=== PATIENT | female | born 1945 | race Caucasian/White ===

== ENCOUNTER 2017-12-04 16:24 | Emergency (ER) | payer OTHER, MEDICARE ==
[2017-12-04 16:39] VITALS: BP 155/80; PULSE 84; RESP 18; TEMP 97.7; O2SAT 95
--- NOTE | 2017-12-04 17:44 | EDPHY ---
H & P Smoking Status: Never smoked Time Seen by Provider: 12/04/17 17:37 HPI/ROS: CHIEF COMPLAINT: Right medial ankle pain x2 weeks, requesting morgan boot HISTORY OF PRESENT ILLNESS: 72-year-old female, ambulates with a walker, arrives via private vehicle complaining of acute right medial ankle pain after she rolled her foot 2 weeks ago. She is able to bear weight albeit with pain. Notes soft tissue swelling/edema which decreases with elevation and ice packs. No paresthesia. No fall from height. No proximal tibia or fibula pain, no fibular head pain. PRIMARY CARE PROVIDER: Dr. Inocente Robertson REVIEW OF SYSTEMS: A ten point review of systems was performed and is negative with the exception of the items mentioned in the HPI PHYSICAL EXAM (Prior to examination, patient consented to physical exam, hands were washed and my usual and customary physical exam procedures followed) 1) GENERAL: Well-developed, well-nourished, alert and oriented. Appears to be in no acute distress. 2) HEAD: Normocephalic 3) HEENT: Pupils equal, round, reactive to light bilaterally. 4) LUNGS: Breathing comfortably. 5) MUSCULOSKELETAL: Soft tissue swelling tender to palpation medial malleolus on right ankle. proximal tibia and fibula nontender .5th MT nontender negative Hung test, compartments soft 6) SKIN: Intact no tenting no discoloration 7) VASCULAR: DP,PT pulses and cap refill present and brisk DIFFERENTIAL DIAGNOSIS: in no particular order including but not limited to fracture, sprain, compartment syndrome Procedure: Splint A Morgan olsonot splint was applied by ER supply technician. After application of the splint I returned and re-examined the patient. The splint was adequately immobilizing the joint and distal to the splint the patient's circulation and sensation were intact. Patient shows no signs of compartment syndrome. Was given orthopedic precautions. (Anand Birmingham) Constitutional: Initial Vital Signs Temperature (C) 36.5 C 12/04/17 16:30 Heart Rate 84 12/04/17 16:30 Respiratory Rate 18 12/04/17 16:30 Blood Pressure 155/80 H 12/04/17 16:30 O2 Sat (%) 95 12/04/17 16:30 O2 Delivery Mode Room Air Allergies/Adverse Reactions: codeine Allergy (Verified 12/04/17 16:36) Home Medications: Medication Instructions Recorded Aspirin [Aspirin 81mg (*)] 81 mg PO HS 12/01/13 Enalapril Maleate [Vasotec 10 MG 10 mg PO HS 12/01/13 (*)] Insulin Detemir [Levemir] 16 unit SQ DAILY 12/01/13 Loratadine [Claritin 10 mg] 10 mg PO HS 12/01/13 Simvastatin [Zocor 10 mg] 10 mg PO HS 12/01/13 Vits A,C,E/Lutein/Minerals 1 each PO HS 12/01/13 [Ocuvite with Lutein Tablet] Docusate Sodium [Colace 100 MG (*)] 100 mg PO BID 01/31/14 Ascorbic Acid [Vitamin C 500 mg 1,000 mg PO BID 02/23/14 (*)] Calcium Carbonate [[id number]] 1,000 mg PO DAILY 02/23/14 Cholecalciferol Vit D3 [Vitamin D3 1,000 units PO DAILY 02/23/14 (*)] Glucosamine/Chondroitin 2 cap PO BID 02/23/14 [Glucosamine/Chondroitin (*)] Herbals/Supplements -Info Only 1 each PO AD 02/23/14 Insulin Lispro [humALOG LISPRO 100 2 - 10 unit SC TIDMEAL #0 unit 02/26/14 units/ml (*)] LORazepam [Ativan] 0.5 - 1 tab PO TID PRN #20 tab 04/14/16 Ondansetron Odt [Zofran Odt] 4 mg PO Q4PRN PRN #20 tab 04/14/16 LORazepam [Ativan] 1 mg PO Q6-8PRN PRN #2 tab 04/15/16 Ondansetron Odt [Zofran Odt] 4 mg PO Q4 #10 tab 04/15/16 oxyCODONE IR [Oxycodone Ir (RX)] 5 mg PO Q6-8PRN PRN #3 tab 04/15/16 MDM/Departure - MDM Imaging Results: Images reviewed myself (Anand Birmingham) ED Course/Re-evaluation: Care of patient under supervision of secondary supervising physician Dr Dover . Patient has been re-evaluated with serial exams. She has been informed that she has a lateral malleolus fracture for which he has been bearing weight for the past 2 weeks. She is not an appropriate candidate for crutches as she ambulates with a baseline with her walker. She has been placed in a [place] boot, recommend elevation, follow up with Orthopaedics. (Anand Birmingham) The patient was evaluated and managed by the Physician Scientific Informatics Leader. I discussed the patient's presentation and course with the physician anesthesiologists' assistant and agree with the evaluation. My co-signature indicates that I have reviewed this chart and I agree with the findings and plan of care as documented. I am the secondary supervising physician. (Saranya Dover) - Depart Disposition: Home, Routine, Self-Care Clinical Impression: Fracture of right ankle, lateral malleolus Qualifiers: Encounter type: initial encounter Fracture type: closed Fracture alignment: nondisplaced Qualified Code(s): S82.64XA - Nondisplaced fracture of lateral malleolus of right fibula, initial encounter for closed fracture Condition: Good Instructions: Ankle Fracture (ED) Additional Instructions: Return to the ER immediately if you experience discoloration, have worsening pain, numbness, tingling, or any other symptoms that concern you. If you received x-rays in the emergency department today, be advised, that ligamentous , tendon, muscular, and other non-bony injury cannot be fully ruled out. Try to keep your affected extremity elevated above the level of your chest, and keep cold packs on the affected area Referrals: Boaz Smith MD [Medical Doctor] - 5-7 days, call for appt.
== END 2017-12-04 19:10 | disposition home or self-care (01) ==
DX: S82.61XA Displaced fracture of lateral malleolus of right fibula, initial encounter for closed fracture (principal); Z79.4 Long term (current) use of insulin; Z79.82 Long term (current) use of aspirin; X50.9XXA Other and unspecified overexertion or strenuous movements or postures, initial encounter
CPT/HCPCS: 73610; 99284; L4386